=== PATIENT | female | born 1960 ===

== ENCOUNTER 2016-11-16 06:15 | Day surgery (SDC) | payer MEDICAID ==
[2016-11-16 07:15] VITALS: BMI 24.5
[2016-11-16] MEDS ORDERED: Propofol 10 mg/ml Inj (20 ML) ONE (08:03)
[2016-11-16 09:27] VITALS: BP 110/81; PULSE 64; RESP 19; TEMP 97.5; O2SAT 97
== END 2016-11-16 10:00 | disposition home or self-care (01) ==
LOC: C.ENDO 06:15
PROVIDERS: ATTEND Internal Medicine
DX: K21.0 Gastro-esophageal reflux disease with esophagitis (principal); K29.70 Gastritis, unspecified, without bleeding; K29.80 Duodenitis without bleeding; K44.9 Diaphragmatic hernia without obstruction or gangrene; B96.81 Helicobacter pylori [H. pylori] as the cause of diseases classified elsewhere; K64.8 Other hemorrhoids; K57.90 Diverticulosis of intestine, part unspecified, without perforation or abscess without bleeding; D12.2 Benign neoplasm of ascending colon; D12.3 Benign neoplasm of transverse colon
CPT/HCPCS: 43239; 45388; 88305; 88312; 88313; 88342; J2704

== ENCOUNTER 2017-06-19 10:34 | Emergency (ER) | payer MEDICAID ==
[2017-06-19 10:49] VITALS: BMI 24.9
[2017-06-19 10:51] VITALS: RESP 16; TEMP 98.2
--- NOTE | 2017-06-19 11:26 | C.PDOC ---
History Of Present Illness 56-year-old female, presents to the emergency department with complaints of an itchy rash around the pubic area and thighs that developed over the past two days. Patient did not take anything at home for symptoms. Denies any new foods or known exposure. No fevers, recent travel, vomiting. Time Seen by Provider: 06/19/17 11:19 Chief Complaint (Nursing): Abnormal Skin Integrity History Per: Patient History/Exam Limitations: no limitations Onset/Duration Of Symptoms: Days Current Symptoms Are (Timing): Still Present Past Medical History Reviewed: Historical Data, Nursing Documentation, Vital Signs Vital Signs: Last Vital Signs Temp 98.2 F 06/19/17 11:37 Pulse 82 06/19/17 11:37 Resp 16 06/19/17 11:37 BP 122/81 06/19/17 11:37 Pulse Ox 100 06/19/17 12:09 - Medical History PMH: Asthma, Gastritis Denies: Colonic Polyps, Fractures, Sleep Apnea, TIA Surgical History: Endoscopy Family History: States: No Known Family Hx - Social History Hx Alcohol Use: No Hx Substance Use: No Review Of Systems Constitutional: Negative for: Fever, Chills, Malaise ENT: Negative for: Nose Congestion, Throat Swelling Respiratory: Negative for: Hemoptysis Gastrointestinal: Negative for: Vomiting Skin: Positive for: Rash Physical Exam - Physical Exam Appears: Non-toxic, No Acute Distress Skin: Warm, Dry, Rash (erythematous papules and pustules to suprapubic area, inner thighs, lower back.) Head: Atraumatic, Normacephalic Eye(s): bilateral: Normal Inspection, EOMI Nose: Normal Oral Mucosa: Moist Lips: Normal Appearing Neck: Normal ROM Cardiovascular: Rhythm Regular, No Murmur Respiratory: Normal Breath Sounds, No Accessory Muscle Use Extremity: Bilateral: Atraumatic, Normal ROM Neurological/Psych: Oriented x3, Normal Speech ED Course And Treatment O2 Sat by Pulse Oximetry: 100 (RA) Pulse Ox Interpretation: Normal Medical Decision Making Medical Decision Making: itchy rash around pubic area and thighs. no signs of cellulitis or any abscess. recommend benadryl for any itching and to avoid shaving area. can apply warm compresses. Rx given. Disposition Counseled Patient/Family Regarding: Diagnosis, Need For Followup, Rx Given - Disposition Disposition: HOME/ ROUTINE Disposition Time: 11:24 Condition: GOOD Additional Instructions: apply cream to affected areas take benadryl for any itching follow up with your primary doctor for further evaluation Prescriptions: Mupirocin 2% Cream [Bactroban Cream] 30 applic EXT BID #1 tube Instructions: Folliculitis (DC) Forms: [facility] ([place]) - POA Present On Arrival: None - Clinical Impression Clinical Impression: Folliculitis - Scribe Statement The provider has reviewed the documentation as recorded by the Scribe (Bianka Shell) All medical record entries made by the Scribe were at my direction and personally dictated by me. I have reviewed the chart and agree that the record accurately reflects my personal performance of the history, physical exam, medical decision making, and the department course for this patient. I have also personally directed, reviewed, and agree with the discharge instructions and disposition.
[2017-06-19 11:38] VITALS: BP 122/81; PULSE 82
[2017-06-19 12:06] VITALS: O2SAT 100
== END 2017-06-19 11:37 | disposition home or self-care (01) ==
LOC: C.ER 10:34
DX: L73.9 Follicular disorder, unspecified (principal)